=== PATIENT | female | born 1980 | race Caucasian/White ===

== ENCOUNTER → 2016-11-16 | Outpatient (CLI) | payer MEDICARE ==
[~2016-11-16] MED LIST: ATIVAN PO; CELEXA PO; FLUOXETINE; NASONEX17 GM; OMEGA 3 PO; PRENATAL VITAMI1 TA3 PO; PROGESTERONE; SINGULAIR PO; SYNTHROID PO; SYNTHROID25 MCG PO; THYROID PO; TYLENOL #3 PO; VISTARIL PO; WALGREEN'S PHARMACY; ZYRTEC PO
[2016-11-16 16:59] LABS: THYROID STIMULATING HORMONE 5.26 uIU/ml (0.34-5.60)
[2016-11-16 22:48] LABS: FREE THYROXIN (T4) 0.74 ng/dL (0.58-1.64)
== END | disposition home or self-care (01) ==
LOC: SLAB 15:45
PROVIDERS: Internal Medicine Endocrinology, Diabetes & Metabolism
DX: E55.9 Vitamin D deficiency, unspecified (principal)
CPT/HCPCS: 36415; 82306; 84439; 84443

== ENCOUNTER → 2017-02-23 | Outpatient (CLI) | payer MEDICARE ==
[2017-02-23 09:23] LABS: THYROID STIMULATING HORMONE 5.86 uIU/ml (0.34-5.60)
[2017-02-23 11:55] LABS: FREE THYROXIN (T4) 0.79 ng/dL (0.58-1.64)
== END | disposition home or self-care (01) ==
LOC: SLAB 08:16
PROVIDERS: Internal Medicine Endocrinology, Diabetes & Metabolism
DX: E03.9 Hypothyroidism, unspecified (principal); E55.9 Vitamin D deficiency, unspecified
CPT/HCPCS: 36415; 82306; 84439; 84443